=== PATIENT | female | born 1950 | race African-American/Black ===

== ENCOUNTER 2020-05-25 17:55 | Emergency (ER) | payer OTHER ==
[2020-05-25 18:01] VITALS: BMI 30.4
[2020-05-25] MEDS ORDERED: FAMOTIDINE 20 MG/50 ML IVPB 20 MG/50 ML MG IVPB ONE ×2 (18:02→18:10)
[2020-05-25] MEDS ORDERED: methylPREDNISolone NA SUCC 125 MG/2 ML VIAL IVPUSH ONE (18:02)
--- NOTE | 2020-05-25 18:02 | PDOC ---
Rapid Medical Evaluation Time Seen by Provider: 05/25/20 17:57 Medical Evaluation: 05/25/20 17:58 I have performed a brief in-person evaluation of this patient. The patient presents with a chief complaint of: Sudden onset tongue swelling within last 2 hrs. On enalapril for HTN which pt has been on for years. H/o DM a nd hypothyroid as well. No difficulty breathing or stridor at this time. No rash or itching. No other obvious inciting factors. No known drug/food/environmental allergies Pertinent physical exam findings:Tachy to 105 w/ enlarged tongue on exam, unable to visualize oropharynx, no stridor I have ordered the following:meds The patient will proceed to the ED for further evaluation. 05/25/20 18:03 Discharge Disposition - Diagnosis Angioedema Qualifiers: Encounter type: initial encounter Qualified Code(s): T78.3XXA - Angioneurotic edema, initial encounter - Referrals - Patient Instructions - Post Discharge Activity
[2020-05-25] MEDS ORDERED: methylPREDNISolone NA SUCC 125 MG/2 ML VIAL ONE (18:10)
[2020-05-25] MEDS ORDERED: TRANEXAMIC ACID 1000 MG/10 ML VIAL IVPUSH ONE (18:21)
--- NOTE | 2020-05-25 19:06 | PDOC ---
History of Present Illness - General Chief Complaint: Tongue Swelling Stated Complaint: SWOLLEN TONGUE Time Seen by Provider: 05/25/20 17:57 - History of Present Illness Initial Comments: Pt is a 69yo F with PMH of HTN, DM, HLD who presents with tongue swelling. Swelling began gradually at 4pm, by 5pm noticed that tongue was significantly swollen, but has been unchanged since then. Denies taking any new medications, new diet. Denies any other facial swelling, change in voice, rashes/hives. Pt has been taking enalapril since 06/2019. Has history of hyperthyroid treated with radiation. Denies abdominal pain, n/v, diarrhea, constipation. PMH: HTN, HLD, DM PSHx: denies All: NKDA Social: occasional ETOH use, denies smoking, illicit substance use Past History - Medical History Allergies/Adverse Reactions: Allergies Allergy/AdvReac Type Severity Reaction Status Date / Time No Known Allergies Allergy Verified 05/25/20 18:03 Home Medications: Ambulatory Orders Aspirin [Aspirin EC] 81 mg PO DAILY 05/25/20 Atorvastatin Ca [Lipitor] 40 mg PO HS 05/25/20 Calcium Carbonate/Vitamin D3 [Calcium 600 + Vit D Tablet] 1 each PO DAILY 05/25/20 Cholecalciferol (Vitamin D3) [Vitamin D3 -] 1,000 unit PO DAILY 05/25/20 Enalapril Maleate [Vasotec -] 10 mg PO BID 05/25/20 Levothyroxine Sodium [Synthroid] 88 mcg PO DAILY 05/25/20 Metformin HCl [Glucophage] 500 mg PO TID 05/25/20 COPD: No Diabetes: Yes HTN: Yes Hypercholesterolemia: Yes - Immunization History Immunization Up to Date: Yes - Psycho-Social/Smoking History Smoking History: Never smoked - Substance Abuse Hx (Audit-C & DAST Scrn) How often the patient has a drink containing alcohol: Never Score: In Men: 4 or > Positive; In Women: 3 or > Positive: 0 Screen Result (Pos requires Nsg. Audit-10AR): Negative In the last yr the pt used illegal drug/Rx for NonMed reason: No Score: Yes response is considered Positive: 0 Screen Result (Positive result requires Nsg. DAST-10): Negative Review of Systems - Review of Systems Able to Perform ROS?: Yes Comments:: Constitutional: Denies fever, chills, diaphoresis, generalized weakness HEENT:reports tongue swelling, denies throat pain, visual changes CARDIOVASCULAR:denies chest pain, palpitations, lightheadedness, peripheral edema RESPIRATORY:denies cough, shortness of breath, wheezing GI: denies abdominal pain, nausea, vomiting, diarrhea, constipation, melena, hematochezia :denies dysuria, frequency, urgency, MUSCULOSKELETAL:denies myalgia, arthralgia SKIN:denies rash, itching HEMATOLOGIC/IMMUNOLOGIC:denies easy bleeding, easy bruising NEUROLOGIC:denies headache, dizziness *Physical Exam - Vital Signs Last Vital Signs Temp Pulse Resp BP Pulse Ox 98.3 F 105 H 20 163/82 100 05/25/20 17:58 05/25/20 17:58 05/25/20 17:58 05/25/20 17:58 05/25/20 17:58 - Physical Exam General: in no acute distress, well developed, well nourished Head: normocephalic ENT: moist mucous membranes, swollen tongue, uvula not visualized Lung: equal breath sounds b/l, CTA b/l, no crackles, wheezes Heart: RRR, normal S1, S2, no murmurs, rubs, gallops Abdomen: soft, non tender, normoactive bowel sounds, no guarding, rebound, masses Extremities:no edema, no erythema or tenderness, DP/PT pulses 2+ and symmetric Skin: warm, dry, no rashes or lesions noted ED Treatment Course - LABORATORY CBC & Chemistry Diagram: 05/25/20 19:00 05/25/20 19:00 - Medications Given in the ED: ED Medications Discontinued Medications Generic Name Dose Route Start Last Admin Trade Name Maurisio PRN Reason Stop Dose Admin Diphenhydramine HCl 50 mg 05/25/20 18:02 05/25/20 18:05 Benadryl Injection - IM 05/25/20 18:03 50 mg ONCE ONE Administration Famotidine/Sodium Chloride 20 mg in 50 mls @ 100 mls/hr 05/25/20 18:02 05/25/20 18:15 Pepcid 20 Mg Premixed Ivpb - IVPB 05/25/20 18:31 100 mls/hr ONCE ONE Administration Methylprednisolone Sodium Succinate 125 mg 05/25/20 18:02 05/25/20 18:15 Solu-Medrol - IVPUSH 05/25/20 18:03 125 mg ONCE ONE Administration Tranexamic Acid 1,000 mg 05/25/20 18:21 05/25/20 18:35 Tranexamic Acid - IVPUSH 05/25/20 18:22 1,000 mg ONCE ONE Administration Medical Decision Making - Medical Decision Making Ms. Coelho is a 69yo F with Hx HTN, HLD, DM presents with tongue swelling. Vital Signs Temp Pulse Resp BP Pulse Ox 98.3 F 105 H 20 163/82 100 05/25/20 17:58 05/25/20 17:58 05/25/20 17:58 05/25/20 17:58 05/25/20 17:58 DDx: angioedema, allergic reaction Plan: labs, cxr, ekg Most likely angioedema due to ACEi use; Pt appears comfortable, breathing well, no SOB, no stridor, no secretions. Given abundance of caution for difficult airway management and with patient's agreement, the decision was made to trans dougie the patient to [facility] for additional monitoring with ENT in case patient worsens. Pt has been given Benadryl, Famotidine, Solumedrol, and TXA 1000mg, with self-reported improvement in symptoms. Pt has had stable vitals with decreased swelling during her time in ED. Pt discussed with Dr. Dickson at [facility] who has accepted patient. Disposition: Transfer to [facility] Discharge - Discharge Information Problems reviewed: Yes Clinical Impression/Diagnosis: Angioedema Qualifiers: Encounter type: initial encounter Qualified Code(s): T78.3XXA - Angioneurotic edema, initial encounter Condition: Stable Disposition: TRANSFER ACUTE CARE/OTHER HOSP - Follow up/Referral Referrals: Keely Gambino [Primary Care Provider] - - Patient Discharge Instructions - Post Discharge Activity - Transfer to Acute Care Facility Receiving Facility Name: [facility]
[2020-05-25 19:24] LABS: BASO % 0.3 % (0-2.0); EOS % 0.6 % (0-4.5); HEMATOCRIT 40.4 % (32.4-45.2); HEMOGLOBIN 12.7 GM/dL (10.7-15.3); LYMPH % 32.2 % (8-40); MCH 28.8 pg (25.7-33.7); MCHC 31.3 g/dl (32.0-36.0); MEAN CELL VOLUME 91.9 fl (80-96); MONO % 5.2 % (3.8-10.2); NEUT % 61.7 % (42.8-82.8); PLATELET COUNT 256 K/MM3 (134-434); RDW 14.1 % (11.6-15.6); WHITE BLOOD COUNT 7.1 K/mm3 (4.0-10.0)
[2020-05-25 19:32] LABS: INR 0.99 (0.83-1.09); PROTHROMBIN TIME (PATIENT) 11.7 SEC (9.7-13.0)
--- NOTE | 2020-05-25 19:47 | PDOC ---
Attending Attestation - Resident Resident Name: Rubi Wagner - ED Attending Attestation I have performed the following: I have examined & evaluated the patient, The case was reviewed & discussed with the resident, I agree w/resident's findings & plan - HPI HPI: 05/25/20 19:42 see resident hpi - Physicial Exam PE: 05/25/20 19:42 see resident exam - Medical Decision Making 05/25/20 [id number] female currently on MABEL inhibitor therapy for hypertension with tongue swelling Case discussed with in-house anesthesiology due to possibility of airway deterioration requiring fiberoptic intervention and/or surgical intervention, it was recommended that patient be transferred No ENT call available at this facility This was discussed with the patient, patient accepted to [facility] emergency department for ENT evaluation and further management Patient received TXA, steroids Pepcid and Benadryl At this time airway is patent 05/25/20 19:47 Discharge - Discharge Information Problems reviewed: Yes Clinical Impression/Diagnosis: Angioedema Qualifiers: Encounter type: initial encounter Qualified Code(s): T78.3XXA - Angioneurotic edema, initial encounter Condition: Guarded Disposition: TRANSFER ACUTE CARE/OTHER HOSP - Follow up/Referral Referrals: Keely Gambino [Primary Care Provider] - - Patient Discharge Instructions - Post Discharge Activity
[2020-05-25 19:56] LABS: ALBUMIN 3.9 g/dl (3.4-5.0); BILIRUBIN,TOTAL 0.6 mg/dL (0.2-1); BLOOD UREA NITROGEN 11.6 mg/dL (7-18); CALCIUM 9.3 mg/dL (8.5-10.1); POTASSIUM 3.8 mmol/L (3.5-5.1); TOT PROT 7.2 g/dl (6.4-8.2)
[2020-05-25 19:59] VITALS: BP 137/60; PULSE 67
[2020-05-25 20:15] VITALS: TEMP 98.9
--- NOTE | 2020-05-26 12:05 | EKG ---
Test Reason : Blood Pressure : / mmHG Vent. Rate : 072 BPM Atrial Rate : 072 BPM P-R Int : 166 ms QRS Dur : 086 ms QT Int : 402 ms P-R-T Axes : 032 -35 008 degrees QTc Int : 440 ms NORMAL SINUS RHYTHM LEFT AXIS DEVIATION ANTERIOR INFARCT , AGE UNDETERMINED ABNORMAL ECG NO PREVIOUS ECGS AVAILABLE Confirmed by MD Colby, Saji ([id number]) on 05/26/2020 12:05:01 PM Referred By: Confirmed By:Saji Bowman MD
== END 2020-05-25 20:47 | disposition short-term general hospital (02) ==
LOC: JER 17:55
PROC: 3E033GC Introduction of Other Therapeutic Substance into Peripheral Vein, Percutaneous Approach (ICD-10-PCS; principal; 2020-05-25)
PROC: 3E023GC Introduction of Other Therapeutic Substance into Muscle, Percutaneous Approach (ICD-10-PCS; principal; 2020-05-25)
DX: T78.3XXA Angioneurotic edema, initial encounter (principal)
CPT/HCPCS: 36415; 71045-TC-FY; 80053; 85025; 85610; 85730; 86850; 86900; 86901; 93005; 93010; 99285-25

== ENCOUNTER 2022-08-17 09:17 | Day surgery (SDC) | payer OTHER ==
[2022-08-15 11:53] VITALS: BMI 30.4
[2022-08-17] MEDS ORDERED: CYCLOPENTOLATE 2% OPHTH SOLN 2 ML BOTTLE ONE (09:27)
[2022-08-17] MEDS ORDERED: CIPROFLOXACIN 0.3% EYE DROPS 5 ML BOTTLE ONE (09:27)
[2022-08-17] MEDS ORDERED: TROPICAMIDE 1% OPHTH SOLN 15 ML BOTTLE ONE (09:27)
[2022-08-17] MEDS ORDERED: PHENYLEPHRINE 2.5% OPHTH SOLN 15 ML BOTTLE ONE (09:27)
[2022-08-17] MEDS ORDERED: LIDOCAINE 1% P/F 10 MG/ML VIAL ONE (11:25)
[2022-08-17] MEDS ORDERED: TETRACAINE 0.5% OPHTH SOLN 2 ML BOTTLE ONE (11:26)
[2022-08-17] MEDS ORDERED: BSS (NA/CA/MG/K) BALANCED SALT SOLUTION OPHTH SOLN 15 ML BOTTLE ONE (11:26)
[2022-08-17] MEDS ORDERED: NEO/POLYMYX B SULF/DEXAMETH OPHTHALMIC 5ML BOTTLE ONE (11:26)
[2022-08-17] MEDS ORDERED: CARBACHOL 0.01% INTRA-OCULAR 1.5 ML VIAL ONE (11:26)
[2022-08-17] MEDS ORDERED: MIDAZOLAM HCL 2 MG/2 ML SINGLE DOSE VIAL ONE (11:37)
[2022-08-17 12:29] VITALS: BP 136/72; PULSE 61; RESP 16; TEMP 97.8
== END 2022-08-17 12:40 | disposition home or self-care (01) ==
LOC: FASU 09:17
PROVIDERS: ATTEND Ophthalmology
PROC: 08RJ3JZ Replacement of Right Lens with Synthetic Substitute, Percutaneous Approach (ICD-10-PCS; principal; 2022-08-17 11:41)
DX: H26.8 Other specified cataract (principal)
CPT/HCPCS: 66984; V2632